=== PATIENT | female | born 1980 | race Caucasian/White ===

== ENCOUNTER 2017-05-05 13:31 | Emergency (ER) | payer MEDICAID ==
[~2017-05-05] VITALS: Ht 162.6 cm; Wt 45.0 kg
[~2017-05-05 13:31] MED LIST: CLON1 PO; ZOLO100T PO
[2017-05-05 13:33] VITALS: BP 126/78; PULSE 106; RESP 18; TEMP 98.9; O2SAT 97
[2017-05-05] MEDS ORDERED: ALBU6.7H INH (15:05)
[2017-05-05 15:30] VITALS: O2SAT 99
[2017-05-05] MEDS ORDERED: methylPREDNISolone SOD SUCC 125 MG/2 ML VIAL IVP ONE (15:30)
[2017-05-05] MEDS ORDERED: SODIUM CHLORIDE 0.9% FLUSH 10 ML FLUSH IVF PRN (15:30)
[2017-05-05] MEDS: RESP: ALBUTEROL 2.5 MG/IPRATROPIUM 0.5 MG NEB (SCH) INH ×2 (15:39→15:40)
--- NOTE | 2017-05-05 15:54 | RADRPT ---
EXAM DATE/TIME: 05/05/2017 15:36 [place] COMPARISON: No previous studies available for comparison. INDICATIONS : Short of breath MEDICAL HISTORY : Chronic obstructive pulmonary disease. Asthma SURGICAL HISTORY : None. ENCOUNTER: Initial ACUITY: 1 month PAIN SCORE: 0/10 LOCATION: Bilateral chest FINDINGS: PA and lateral views of the chest demonstrate the lungs to be symmetrically aerated without evidence of mass, infiltrate or effusion. The cardiomediastinal contours are unremarkable. Osseous structure s are intact. CONCLUSION: 1. No acute cardiopulmonary disease. Den Hogue MD on May 05, 2017 at 15:52 Board Certified Radiologist. This report was verified electronically.
[2017-05-05 16:48] LABS: AUTOMATED NEUTROPHIL # 4.7 TH/MM3 (1.8-7.7); BASOPHIL % 0.5 % (0.0-2.0); EOSINOPHIL # 0.1 TH/MM3 (0-0.4); EOSINOPHIL % 1.6 % (0.0-4.0); HEMATOCRIT 37.7 % (35.0-46.0); HEMO FLAGS DIFF FINAL; LYMPH % 27.1 % (9.0-44.0); LYMPHOCYTE # 1.9 TH/MM3 (1.0-4.8); MEAN CELL VOLUME 92.2 FL (80.0-100.0); MEAN CORPUSCULAR HEMOGLOBIN 30.5 PG (27.0-34.0); MEAN CORPUSCULAR HGB CONC 33.1 % (32.0-36.0); MONO % 5.3 % (0.0-8.0); NEUT % 65.5 % (16.0-70.0); PLATELET COUNT 328 TH/MM3 (150-450); RED CELL DISTRIBUTION WIDTH 14.4 % (11.6-17.2); WHITE BLOOD COUNT 7.1 TH/MM3 (4.0-11.0)
[2017-05-05 17:05] LABS: ALT (GPT) 25 U/L (10-53); ANION GAP 10 MEQ/L (5-15); AST (GOT) 22 U/L (15-37); BICARBONATE 24.2 MEQ/L (21.0-32.0); BLOOD UREA NITROGEN 5 MG/DL (7-18); CHLORIDE 108 MEQ/L (98-107); GLOMERULAR FILTRATION RATE 108 ML/MIN (>89); POTASSIUM 3.6 MEQ/L (3.5-5.1); SODIUM (NA) 142 MEQ/L (136-145)
[2017-05-05 17:08] LABS: ALKALINE PHOSPHATASE 87 U/L (45-117); TOTAL BILIRUBIN ADULT 0.2 MG/DL (0.2-1.0)
[2017-05-05] MEDS ORDERED: PRED50 PO (17:22)
--- NOTE | 2017-05-05 17:22 | PD ---
HPI Chief Complaint: Respiratory Symptoms Time Seen by Provider: 15:00 Travel History International Travel<30 days: No Contact w/Intl Traveler<30days: No Traveled to known affect area: No History of Present Illness HPI Patient is a 36-year-old female who comes in complaining of shortness of breath. She has history of asthma/COPD and is trying to quit smoking. She says she had a cigarette this morning, and about an hour into work, she had a choking episode where she couldn't stop coughing. She says this has been happening frequently. She has been using her inhaler without much relief. She says occasionally she feels like she has a fever, but she has not taken her temperature. She was seen in urgent care 3 weeks ago and was prescribed azithromycin and given steroids. She said she felt a little better, but never felt completely better. She denies chest pain. 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) Respiratory: Yes (ASTHMA, COPD) Tetanus Vaccination: < 5 Years Influenza Vaccination: No ?: Unknown : 5 Para: 4 Miscarriage: 0 : 0 Past Surgical History Surgical History: No Previous Surgery Social History Alcohol Use: No Tobacco Use: Yes Substance Use: No Allergies-Medications (Allergen,Severity, Reaction): Coded Allergies: No Known Allergies (Verified , 05/05/17) Reported Meds & Prescriptions Reported Meds & Active Scripts Active Reported Proventil Hfa 6.7 GM Inh (Albuterol Sulfate) 90 Mcg/Act Aer 2 Puff INH Q4-6H PRN Klonopin (Clonazepam) 1 Mg Tab 1 Mg PO TID Zoloft (Sertraline HCl) 100 Mg Tab 100 Mg PO DAILY Review of Systems Except as stated in HPI: all other systems reviewed are Neg General / Constitutional: Positive: Fever HENT: No: Headaches, Lightheadedness Cardiovascular: No: Chest Pain or Discomfort Respiratory: Positive: Cough, Shortness of Breath Gastrointestinal: No: Nausea, Vomiting Genitourinary: No: Dysuria Musculoskeletal: No: Myalgias Skin: No Rash Physical Exam Narrative GENERAL: Awake and alert, in no acute distress. SKIN: Focused skin assessment warm/dry. HEAD: Atraumatic. Normocephalic. EYES: Pupils equal and round. No scleral icterus. ENT: Mucous membranes pink and moist. No tonsillar swelling, no uvular swelling , no erythema or irritation of the throat. NECK: Trachea midline. No JVD. CARDIOVASCULAR: Regular rate and rhythm. No murmur appreciated. RESPIRATORY: No accessory muscle use. Bilateral coarse breath sounds with occasional wheezes. Breath sounds equal bilaterally. GASTROINTESTINAL: Abdomen soft, non-tender, nondistended. MUSCULOSKELETAL: No obvious deformities. No clubbing. No cyanosis. No edema. NEUROLOGICAL: Awake and alert. No obvious cranial nerve deficits. Motor grossly within normal limits. Normal speech. PSYCHIATRIC: Appropriate mood and affect; insight and judgment normal. Data Data Last Documented VS Vital Signs Date Time Temp Pulse Resp B/P Pulse Ox O2 Delivery O2 Flow Rate FiO2 05/05/17 15:30 99 21 05/05/17 15:05 16 Room Air 05/05/17 13:33 98.9 106 126/78 Orders Complete Blood Count With Diff (05/05/17 15:21) Comprehensive Metabolic Panel (05/05/17 15:21) Iv Access Insert/Monitor (05/05/17 15:21) Ecg Monitoring (05/05/17 15:21) Oximetry (05/05/17 15:21) Oxygen Administration (05/05/17 15:21) Chest, Pa & Lat (05/05/17 15:21) Sodium Chloride 0.9% Flush (Ns Flush) (05/05/17 15:30) Methylprednisolone So Succ Inj (Solumedr (05/05/17 15:30) Albuterol-Ipratropium Neb (Duoneb Neb) (05/05/17 15:30) Ed Urine Pregnancytest Poc (05/05/17 15:21) Labs Laboratory Tests Test 05/05/17 16:00 White Blood Count 7.1 TH/MM3 Red Blood Count 4.10 MIL/MM3 Hemoglobin 12.5 GM/DL Hematocrit 37.7 % Mean Corpuscular Volume 92.2 FL Mean Corpuscular Hemoglobin 30.5 PG Mean Corpuscular Hemoglobin 33.1 % Concent Red Cell Distribution Width 14.4 % Platelet Count 328 TH/MM3 Mean Platelet Volume 7.9 FL Neutrophils (%) (Auto) 65.5 % Lymphocytes (%) (Auto) 27.1 % Monocytes (%) (Auto) 5.3 % Eosinophils (%) (Auto) 1.6 % Basophils (%) (Auto) 0.5 % Neutrophils # (Auto) 4.7 TH/MM3 Lymphocytes # (Auto) 1.9 TH/MM3 Monocytes # (Auto) 0.4 TH/MM3 Eosinophils # (Auto) 0.1 TH/MM3 Basophils # (Auto) 0.0 TH/MM3 CBC Comment DIFF FINAL Differential Comment Sodium Level 142 MEQ/L Potassium Level 3.6 MEQ/L Chloride Level 108 MEQ/L Carbon Dioxide Level 24.2 MEQ/L Anion Gap 10 MEQ/L Blood Urea Nitrogen 5 MG/DL Creatinine 0.62 MG/DL Estimat Glomerular Filtration 108 ML/MIN Rate Random Glucose 118 MG/DL Calcium Level 8.4 MG/DL Total Bilirubin 0.2 MG/DL Aspartate Amino Transf 22 U/L (AST/SGOT) Alanine Aminotransferase 25 U/L (ALT/SGPT) Alkaline Phosphatase 87 U/L Total Protein 6.5 GM/DL Albumin 2.8 GM/DL [facility] Medical Decision Making Medical Screen Exam Complete: Yes Emergency Medical Condition: Yes Medical Record Reviewed: Yes Differential Diagnosis Pneumonia versus COPD exacerbation versus bronchitis Narrative Course Patient is a 36-year-old female comes in complaining of coughing and shortness of breath. Exam shows coarse breath sounds are out the lungs. IV established, labs sent. Labs show no acute abnormalities. Chest x-ray performed shows no acute abnormalities. Patient given DuoNeb nebs as well as Solu-Medrol. She reports feeling better. She is asking to go home. She'll be discharged with a course of prednisone. She is encouraged to continue to quit smoking. Encouraged to use her nebulizer at home every 4 hours, and as needed for shortness of breath. Advised follow- up with a primary care doctor. Advised to return to the emergency department as needed for any worsening symptoms. Diagnosis Primary Impression: COPD (chronic obstructive pulmonary disease) Qualified Code: J44.1 - Chronic obstructive pulmonary disease with acute exacerbation Patient Instructions: COPD (Chronic Obstructive Pulmonary Disease) (ED), General Instructions Additional Instructions: Avoid smoking. Use your nebulizer every 4-6 hrs for the next two days. Start the steroids tomorrow as you had a dose today. Follow up with a primary care doctor. Return to the ED as needed for any worsening symptoms. Scripts Prednisone 50 Mg Tab50 Mg PO DAILY 4 Days Ref 0 Prov:Heidy Hennessy MD 05/05/17 Disposition: 01 DISCHARGE HOME Condition: Stable Heidy Hennessy MD May 05, 2017 17:22
[2017-05-05 17:28] VITALS: BP_SYST 100; BP_SYST 99; BP_DIAS 58; BP_DIAS 62; PULSE 88; RESP 15; O2SAT 99
== END 2017-05-05 17:35 | disposition home or self-care (01) ==
LOC: NEPD 13:31
DX: J44.1 Chronic obstructive pulmonary disease with (acute) exacerbation (principal); J45.909 Unspecified asthma, uncomplicated; F17.210 Nicotine dependence, cigarettes, uncomplicated
CPT/HCPCS: 71020; 80053; 84703; 85025; 94640; 94664; 96374; 99284; J2930